=== PATIENT | female | born 1965 | race Caucasian/White ===

== ENCOUNTER 2016-12-07 17:45 | Emergency (ER) | payer OTHER ==
[~2016-12-07] VITALS: Ht 167.6 cm; Wt 81.8 kg
[2016-12-07 17:56] VITALS: BP 137/83; PULSE 84; RESP 20; O2SAT 98
--- NOTE | 2016-12-07 18:04 | ED.REPORT ---
HPI-Back Pain 40 and Over Date of Service Dec 07, 2016 ED Provider: Amrit Montaño MD Patient is a 51 year old female who presents to the ED complaining of back pain with radiation to her R leg onset a few months ago that . Her pain started with a kidney infection a few months ago. She saw her chiropractor 4 days ago and her pain has been gradually worsening since. Associated symptoms include R leg weakness and numbness. She saw her PCP at [facility] this morning where Xrays were taken. She denies bowel or bladder incontinence, fever , or any other symptoms. She has been taking 400 mg of ibuprofen in the morning and occasionally at night. She has not taken any yet this evening. She takes medication for her thyroid and cholesterol daily. She was started on cyclobenzaprine this morning Nursing Notes Stated Complaint: BACK PAIN, NUMB RIGHT LEG Chief Complaint: Back Pain or Injury Nursing Notes Reviewed: Yes Allergies: Coded Allergies: erythromycin base (Verified Allergy, Unknown, 12/07/16) morphine (Verified Allergy, Unknown, 12/07/16) nefazodone (Verified Allergy, Unknown, 12/07/16) Scheduled Methylprednisolone (MethylprednisoLONE Dose Joaquín) 4 Mg Tab.ds.pk 4 MG PO UD Follow direction on package. Scheduled PRN oxyCODONE-Aspirin 5-325 mg (oxyCODONE-Aspirin 5-325 mg) 1 Each Tablet 1 TABLET PO Q4H PRN PRN For Pain General Time Seen by MD: 18:00 Chief Complaint Back pain Hx Obtained From: Patient Arrived By: Walk-in Sudden in Onset?: Yes Recent Healthcare: Recent doctor visit Risk Factors )( AAA Risk Stratification Abdominal Aortic Aneurysm Risk: No Hypertension, No Prior AAA Risk factors reviewed )( TAD Risk Stratification No Aortic valve disease, No Hypertension, No Risk factors reviewed Past Medical History Past Medical History hypothyroidism Reports: GERD, Hyperlipidemia Past Surgical History none reported Smoking History Smoker Current Status UNK Social History Alcohol Use: Denies alcohol use Drug Use: Denies drug use Other Social History: Good social support Ambulatory Status Walker Review of Systems Constitutional: Denies: Fever Musculoskeletal: Reports: Back pain, Extremity pain Neurologic: Reports: Numbness, Weakness, Denies: Bladder dysfunction, Bowel dysfunction Complete sys rev & neg: except as marked. Physical Exam Initial Vital Signs Vital Signs (First) Date Time Temp Pulse Resp B/P Pulse Ox O2 Delivery O2 Flow Rate FiO2 12/07/16 17:56 36.3 84 20 137/83 98 Room Air Initial VS: Reviewed, Vital signs normal Head / Eyes: Atraumatic, Normocephalic Neck: Full range of motion Skin: Warm, Dry Psychiatric: Mood/affect normal, Behavior normal, Normal thought content General/Constitutional: Awake, Alert, Well developed Distress / Hydration: Positive: Distress moderate Respiratory / Chest: Breath sounds NL, Breath sounds = bilat, No respiratory distress Cardiovascular: Peripheral circulation NL Abdomen: Soft, Non-tender Back: Atraumatic Diffuse lower midline tenderness R sciatic tenderness Neurologic: Oriented X3, Speech NL Lower Extremity / Pelvis / MS: No deformity Pedal pulses intact Light touch intact. Rectum / Perineum: Sphincter tone NL, No saddle anesthesia Ankle / Foot: Atraumatic Ankle extention 4/5 on R Ankle jerk diminished on R Re-Eval/Medical Decision Re-Evaluation/Progress : Time of Eval: 18:57 Re-Evaluation/Progress Note: Rechecked patient. She is feeling better. Discussed plan for discharge. Patient understands and agrees with plan. All questions addressed at this time. Counseled Regarding: Diagnosis, Need for follow-up, When/why to return to ED Discharge & Departure Impression: Primary Impression: Lumbar radiculopathy, right Disposition: Home Discharge Condition All VS Reviewed: Yes Condition: Stable Patient Instructions: Lumbar Radiculopathy (ED) Additional Instructions: Emergency Department evaluation included interview and examination. History and exam suggest acute degenerative disc disease with nerve root compression. Further follow-up with primary care will be important, call them tomorrow. For symptom control, use ibuprofen 400-600 mg 3-4 times a day, take this with food. Start Medrol Dosepak tomorrow and take as directed. For pain not controlled by ibuprofen use Percocet 1 every 4-6 hours, watch for constipation related to this medication. May use cyclobenzaprine as prescribed. Ice to lower back, keep ice wrapped in a towel. Return to emergency department for fevers, problems with bowel or bladder control. Activity as tolerated. Referrals: Savi Mars MD Scribe Attestation Portions of this note were transcribed by Edna Mata. I, Dr. Montaño personally performed the history, physical exam and medical decision-making; I reviewed and confirmed the accuracy of the information in the transcribed note. Signed by: Edna Mata 12/07/16, 191 copies to: Savi Mars MD, Donald L MD Dec 07, 2016 18:04 EDNA MATA Dec 07, 2016 18:16
[2016-12-07] MEDS ORDERED: oxyCODONE-Acetamin 5-325 mg Tablet PO ONE (18:25)
[2016-12-07] MEDS ORDERED: predniSONE 20 mg Tablet PO ONE (18:25)
[2016-12-07] MEDS ORDERED: OXYC-388 PO (19:05)
[2016-12-07] MEDS ORDERED: METH4TAB11 PO (19:05)
[2016-12-07 19:16] VITALS: BP 134/91; PULSE 86; RESP 18; O2SAT 98
== END 2016-12-07 19:17 | disposition home or self-care (01) ==
LOC: SED 17:45
DX: M54.16 Radiculopathy, lumbar region (principal); R20.2 Paresthesia of skin; E03.9 Hypothyroidism, unspecified; K21.9 Gastro-esophageal reflux disease without esophagitis; E78.5 Hyperlipidemia, unspecified; Z88.1 Allergy status to other antibiotic agents; Z88.5 Allergy status to narcotic agent
CPT/HCPCS: 96372; 99283; J1885

== ENCOUNTER 2017-03-30 10:17 | Emergency (ER) | payer OTHER ==
[~2017-03-30] VITALS: Ht 170.2 cm; Wt 77.7 kg
[~2017-03-30 10:17] MED LIST: METH4TAB11 PO; OXYC-388 PO
[2017-03-30 10:23] VITALS: BP 183/99; PULSE 66; RESP 22; O2SAT 100
--- NOTE | 2017-03-30 10:29 | ED.REPORT ---
HPI-Extremity Problem Lower Date of Service Mar 30, 2017 ED Provider: Edy Pichardo MD The pt is a 51 y/o female w/ a hx of L5/S1 surgery, hypothyroidism, and hyperlipidemia presenting to the ED c/o RLE pain onset 1 month ago. She reports weakness, numbness, and paresthesia in her RLE, muscle spasms, nausea, and vomiting as well. The pt reports steroids and Oxycodone providing no relief. The pt had L5/S1 surgery 2 months ago. Nursing Notes Stated Complaint: BACK PAIN Chief Complaint: RLE Pain Nursing Notes Reviewed: Yes Allergies: Coded Allergies: erythromycin base (Verified Allergy, Unknown, 03/30/17) morphine (Verified Allergy, Unknown, 03/30/17) nefazodone (Verified Allergy, Unknown, 03/30/17) Scheduled Methylprednisolone (MethylprednisoLONE Dose Joaquín) 4 Mg Tab.ds.pk 4 MG PO UD Follow direction on package. Scheduled PRN Cyclobenzaprine (Cyclobenzaprine) 5 Mg Tablet 5 MG PO HS PRN PRN Spasm Ibuprofen (Ibuprofen) 800 Mg Tablet 800 MG PO TID PRN PRN For Pain oxyCODONE-Aspirin 5-325 mg (oxyCODONE-Aspirin 5-325 mg) 1 Each Tablet 1 TABLET PO Q4H PRN PRN For Pain General Time Seen by MD: 10:26 Chief Complaint Other (RLE pain ) Hx Obtained From: Patient Arrived By: Walk-in Onset Occurred: More than a week ago... (1 month) Symptom Duration: Since onset Recent Healthcare: No recent hospitalization, Recent doctor visit Similar Sx Previous: No Past Medical History Past Medical History hypothyroidism Reports: GERD, Hyperlipidemia Past Surgical History L5/S1 surgery in december of 2016 Smoking History Smoker Current Status UNK Social History Alcohol Use: Denies alcohol use Drug Use: Denies drug use Other Social History: Good social support Ambulatory Status Walker Review of Systems +Paresthesia in RLE; + muscle spasms; Musculoskeletal: Reports: Extremity pain (RLE ) Neurologic: Reports: Numbness (RLE), Weakness (RLE) Complete sys rev & neg: except as marked. GI: Reports: Nausea, Vomiting Physical Exam Initial Vital Signs Vital Signs (First) Date Time Temp Pulse Resp B/P Pulse Ox O2 Delivery O2 Flow Rate FiO2 03/30/17 10:23 36.2 66 22 183/99 100 Room Air Initial VS: Reviewed General/Constitutional: Well-developed, Well-nourished Head / Eyes: Atraumatic, Normocephalic, PERRL ENT: Mucous membranes moist, Conjunctiva normal, No scleral icterus Neck: Supple, Non-tender, Full range of motion Respiratory: Breath sounds normal, Clear to auscultation, No respiratory distress Cardiovascular: Regular rate & rhythm, Heart sounds normal, Intact distal pulses Upper Extremities: Vascular intact, Neuro intact, No swelling, No tenderness Skin: Warm, Dry, No cyanosis Neurologic: Alert, Oriented, Nonfocal Psychiatric: Mood/affect normal, Behavior normal, Normal thought content Lower Extremity / Pelvis / MS: No deformity, Neurologic intact, Vascular intact Straight leg raise positive at 30 degrees. Ankle / Foot: Atraumatic, Inspection NL, Full range of motion Re-Eval/Medical Decision Med Decision/Clinical Course 51-year-old female who is status post lumbar surgery presenting with chronic right lower back pain. She denies any new weakness numbness tingling incontinence or saddle anesthesia, urinary retention. Her neurological exam is normal. She has a positive straight leg raise. Her symptoms have been persistent since her surgery. There are no signs symptoms of infection. She was given a dose of Toradol will be treated with nonsteroidal anti-inflammatories and muscle relaxers. Follow-up with primary doctor. Return precautions given. Source of Hx: Old records Counseled Regarding: Diagnosis, Need for follow-up, When/why to return to ED Discharge & Departure Impression: Primary Impression: Sciatica, right side Disposition: Home Discharge Condition All VS Reviewed: Yes Condition: Stable Patient Instructions: Sciatica (ED) Additional Instructions: Thank for you entrusting us with your care today. I recommend you stop taking the Methocarbamol and begin taking the new medications I prescribed for you. Follow up with your primary care provider and see a physical therapist for further treatment of your pain. Please return to the emergency department if you experience any new or worsening weakness, numbness tingling incontinence, fevers, nausea vomiting, other new worsening symptoms. I hope you feel better soon. Referrals: Savi Mars MD (PCP) Scribe Attestation Portions of this note were transcribed by Kwesi Gerber. I, Dr. Pichardo personally performed the history, physical exam and medical decision-making; I reviewed and confirmed the accuracy of the information in the transcribed note. copies to: Savi Mars MD, Ben M MD Mar 30, 2017 10:29 Kwesi Gerber Mar 30, 2017 10:48
[2017-03-30] MEDS ORDERED: IBUP800T28 PO (11:03)
[2017-03-30] MEDS ORDERED: CYCL5TAB PO (11:03)
[2017-03-30 11:18] VITALS: BP 141/90; PULSE 67; RESP 20; O2SAT 96
== END 2017-03-30 11:20 | disposition home or self-care (01) ==
LOC: SED 10:17
DX: M54.31 Sciatica, right side (principal); R11.2 Nausea with vomiting, unspecified; E78.5 Hyperlipidemia, unspecified; K21.9 Gastro-esophageal reflux disease without esophagitis; E03.9 Hypothyroidism, unspecified; Z98.890 Other specified postprocedural states; Z88.1 Allergy status to other antibiotic agents; Z88.5 Allergy status to narcotic agent; Z88.8 Allergy status to other drugs, medicaments and biological substances
CPT/HCPCS: 96372; 99283; J1885